=== PATIENT | female | born 1985 | race Caucasian/White ===

== ENCOUNTER 2017-09-13 02:12 | Inpatient (IN) | payer BC ==
[~2017-09-13] VITALS: Ht 170.2 cm; Wt 108.1 kg
[2017-09-13 03:20] LABS: HEMATOCRIT 40.9 % (36.0-46.0); HEMOGLOBIN 13.9 G/DL (11.9-15.5); MCV 82.5 FL (83-99); PLATELET COUNT 273 K/uL (156-360); RBC DIS.WIDTH-CV 12.4 % (11.8-14.6); RBC DIS.WIDTH-SD 37.7 % (39-53); RED BLOOD COUNT 4.96 M/uL (3.80-5.20); WHITE BLOOD COUNT 13.2 K/uL (4.1-10.2)
[2017-09-13 03:34] LABS: ALBUMIN 4.1 g/dL (3.2-4.8)
[2017-09-13 03:35] LABS: CHLORIDE 103 mEq/L (99-109); POTASSIUM 4.5 mEq/L (3.7-5.4); SODIUM 138 mEq/L (136-147)
[2017-09-13 03:37] LABS: GLUCOSE 122 mg/dL (70-99); TOTAL PROTEIN 7.4 g/dL (6.4-8.3)
[2017-09-13 03:39] LABS: TOTAL BILIRUBIN 0.8 mg/dL (0.0-1.0)
[2017-09-13 03:40] LABS: ALKALINE PHOSPHATASE 91 IU/L (3-129)
[2017-09-13 03:41] LABS: CREATININE 0.9 mg/dL (0.6-1.3)
[2017-09-13 03:42] LABS: AST (GOT) 11 IU/L (2-34); UREA NITROGEN (BUN) 14 mg/dL (9-23)
[2017-09-13 03:43] LABS: ALT (GPT) 16 IU/L (3-49)
[2017-09-13 03:44] LABS: LIPASE 14 U/L (1.0-51.0)
[2017-09-13 03:53] LABS: QUANTITATIVE HCG < 4.0 MIU/ML
[2017-09-13 04:05] LABS: GFR ESTIMATE (CALCULATED) > 59 mL/min/
[2017-09-13 04:51] LABS: APPEARANCE CLEAR ((CLEAR)); BILIRUBIN NEGATIVE; BLOOD SMALL; COLOR YELLOW ((YELLOW)); GLUCOSE (STRIP) NEGATIVE; KETONES 20; LEUKOCYTES NEGATIVE; NITRITE NEGATIVE; PROTEIN (STRIP) NEGATIVE; SPECIFIC GRAVITY 1.042 (1.000-1.030); UROBILINOGEN 0.2 MG/DL (0.2-1.0)
[2017-09-13 05:00] LABS: BACTERIA NONE SEEN /HPF; EPITHELIAL CELLS RARE /HPF; MUCUS 1+ /LPF; RED BLOOD CELLS 0-5 /HPF (0-5); UCUL ADDED? NO; WHITE BLOOD CELLS 0-5 /HPF (0-5)
[2017-09-13 06:17] VITALS: BP 131/81
[2017-09-13 06:21] VITALS: BP 131/81
[2017-09-13 08:06] VITALS: BP 135/82
[2017-09-13 11:55] VITALS: BP 168/89
[2017-09-13 16:26] VITALS: BP 144/85
[2017-09-13 20:00] VITALS: BP 148/83
[2017-09-14] VITALS: BP 129/82
[2017-09-14 04:00] VITALS: BP 151/90
[2017-09-14 08:28] VITALS: BP 138/79
[2017-09-14] MEDS ORDERED: NEURONTIN600 MG PO (10:47)
[2017-09-14] MEDS ORDERED: NORGESTIMATE-E1 EACH PO (10:47)
[2017-09-14 15:58] VITALS: BP 140/88
[2017-09-15 00:36] VITALS: BP 132/81
[2017-09-15 06:04] LABS: HEMATOCRIT 40.5 % (36.0-46.0); HEMOGLOBIN 13.3 G/DL (11.9-15.5); MCH 27.3 PG (29.0-34.0); MCHC 32.8 G/DL (30.0-36.0); PLATELET COUNT 252 K/uL (156-360); RBC DIS.WIDTH-CV 12.4 % (11.8-14.6); RBC DIS.WIDTH-SD 37.6 % (39-53); RED BLOOD COUNT 4.88 M/uL (3.80-5.20); WHITE BLOOD COUNT 11.9 K/uL (4.1-10.2)
[2017-09-15 06:12] LABS: ALBUMIN 3.5 G/DL (3.2-4.8); ALKALINE PHOSPHATASE 126 IU/L (3-129); ALT (GPT) 30 IU/L (3-49); AST (GOT) 21 IU/L (2-34); CHLORIDE 104 MEQ/L (99-109); CREATININE 0.8 MG/DL (0.6-1.3); GFR ESTIMATE (CALCULATED) > 59 mL/min/; POTASSIUM 4.1 MEQ/L (3.7-5.4); SODIUM 140 MEQ/L (136-147); TOTAL BILIRUBIN 0.6 MG/DL (0.0-1.0); TOTAL PROTEIN 6.8 G/DL (6.4-8.3); UREA NITROGEN (BUN) 9 mg/dL (9-23)
[2017-09-15 06:14] LABS: GLUCOSE 86 mg/dL (70-99)
[2017-09-15 08:36] VITALS: BP 146/88
[2017-09-15 20:30] VITALS: BP 122/62
[2017-09-16 00:01] VITALS: BP 119/72
[2017-09-16 05:38] LABS: HEMATOCRIT 39.3 % (36.0-46.0); HEMOGLOBIN 13.2 G/DL (11.9-15.5); MCHC 33.6 G/DL (30.0-36.0); MCV 83.4 FL (83-99); PLATELET COUNT 224 K/uL (156-360); RBC DIS.WIDTH-CV 12.5 % (11.8-14.6); RBC DIS.WIDTH-SD 38.1 % (39-53); RED BLOOD COUNT 4.71 M/uL (3.80-5.20); WHITE BLOOD COUNT 10.1 K/uL (4.1-10.2)
[2017-09-16 06:02] LABS: ALBUMIN 3.3 G/DL (3.2-4.8); ALKALINE PHOSPHATASE 114 IU/L (3-129); ALT (GPT) 56 IU/L (3-49); CHLORIDE 103 MEQ/L (99-109); CREATININE 0.8 MG/DL (0.6-1.3); GFR ESTIMATE (CALCULATED) > 59 mL/min/; GLUCOSE 74 mg/dL (70-99); POTASSIUM 3.6 MEQ/L (3.7-5.4); SODIUM 138 MEQ/L (136-147); TOTAL BILIRUBIN 0.7 MG/DL (0.0-1.0); TOTAL PROTEIN 6.3 G/DL (6.4-8.3); UREA NITROGEN (BUN) 8 mg/dL (9-23)
[2017-09-16 06:08] LABS: AST (GOT) 52 IU/L (2-34)
[2017-09-16 08:27] VITALS: BP 136/88
[2017-09-16 12:11] VITALS: BP 138/76
[2017-09-16 16:49] VITALS: BP 125/73
[2017-09-16 23:59] VITALS: BP 124/74
[2017-09-17 08:00] VITALS: BP 135/88
[2017-09-17 08:05] VITALS: BP 135/88
[2017-09-17] MEDS ORDERED: COLACE100 MG PO (16:08)
[2017-09-17] MEDS ORDERED: NORCO 5/3251 TABLET PO (16:08)
[2017-09-17] MEDS ORDERED: MOTRIN600 MG PO (16:08)
[2017-09-17 16:22] VITALS: BP 134/85
[2017-09-17 17:07] VITALS: BP 135/86
== END 2017-09-17 17:30 | disposition home or self-care (01) | DRG 419 ==
LOC: EME 02:12 → 3EAST 05:17 → EDOF 05:17 → ENRESERV 05:19 → 3EAST 06:04
PROVIDERS: Thoracic Surgery (Cardiothoracic Vascular Surgery)
PROC: 0FT44ZZ Resection of Gallbladder, Percutaneous Endoscopic Approach (ICD-10-PCS; principal; 2017-09-15)
DX: K80.00 Calculus of gallbladder with acute cholecystitis without obstruction (principal); E66.9 Obesity, unspecified; Z68.37 Body mass index [BMI] 37.0-37.9, adult
CPT/HCPCS: 74177; 80053; 81003; 83690; 84702; 85027; 87070; 87075; 87205; 88304; 99281; 99285; J0690; J1170; J1200; J1644; J1885; J2250; J2405; J2710; J2765; J3010; J7120